=== PATIENT | female | born 1940 | race Caucasian/White ===

== ENCOUNTER 2017-07-19 07:21 | Outpatient (CLI) | payer MEDICARE ==
--- NOTE | 2017-07-19 13:39 | NM ---
MYOCARDIAL PERFUSION EVALUATION: INDICATIONS: History of chest pain, PVCs, and elevated cholesterol. RADIOPHARMACEUTICAL: The patient received 31.1 millicuries of technetium 99m sestamibi IV with stress and 10.5 millicuries of technetium 99m sestamibi IV with rest. FINDINGS: There is a mild-sized region of mildly reduced activity involving the apex and apical segment of the lateral wall of the left ventricle that is somewhat seen on both rest and stress images but more so o n the stress-related images, with and without auto soft tissue correction. There was normal wall mot ion and thickening present. The estimated LVEF is 86%. IMPRESSION: 1. Probably normal myocardial perfusion evaluation. 2. A predominantly fixed defect is seen involving the apex and apical segment of the lateral wall of the left ventricle, seen on both the rest and stress images but more accentuated on the stress-relat ed images. There was normal wall motion and thickening within this location. This is suspected to b e related to soft tissue attenuation. 3. Estimated left ventricular ejection fraction of 86%. POS: MARY
[2017-07-19] MEDS ORDERED: ADENOSINE 60 MG/20 ML VIAL ONE (15:43)
== END 2017-07-19 07:22 | disposition home or self-care (01) ==
LOC: NM 07:21
PROVIDERS: ATTEND Internal Medicine
DX: R07.9 Chest pain, unspecified (principal)
CPT/HCPCS: 78452; 93017; A9500; J0153

== ENCOUNTER 2019-04-03 03:14 | Emergency (ER) | payer MEDICARE ==
[2019-04-03] MEDS ORDERED: Lidocaine 2% MPF 10 ML AMP (For Epidural Use) ONE ×2 (04:53→05:06)
[2019-04-03] MEDS ORDERED: Lidocaine 2% PF 5 ML VIAL ONE ×2 (04:53→05:08)
--- NOTE | 2019-04-03 08:31 | RAD ---
THREE VIEWS RIGHT WRIST: COMPARISON: None. HISTORY: Fall down steps with right wrist pain. FINDINGS: Three views right wrist show a comminuted intraarticular impacted fracture of the distal radius. A s mall associated ulnar styloid fracture is seen. Surrounding soft tissue swelling and deformity are s een. IMPRESSION: Intraarticular distal radius fracture with associated ulnar styloid fracture. POS: C
--- NOTE | 2019-04-03 09:21 | RAD ---
LEFT ANKLE THREE VIEWS: HISTORY: Fall down stairs with ankle pain. COMPARISON: None. FINDINGS: Three views of the left ankle show no evidence of acute fracture or dislocation. Mild soft tissue swe lling is seen. No degenerative changes are present. IMPRESSION: No evidence of acute osseous abnormality. POS: C
== END 2019-04-03 08:00 | disposition home or self-care (01) ==
LOC: ERS 03:14
DX: S52.571A Other intraarticular fracture of lower end of right radius, initial encounter for closed fracture (principal); S52.611A Displaced fracture of right ulna styloid process, initial encounter for closed fracture; E03.9 Hypothyroidism, unspecified; E78.5 Hyperlipidemia, unspecified; M81.0 Age-related osteoporosis without current pathological fracture; Z79.899 Other long term (current) drug therapy; W01.0XXA Fall on same level from slipping, tripping and stumbling without subsequent striking against object, initial encounter
CPT/HCPCS: 29125; 96372; J2001

== ENCOUNTER 2019-04-07 13:14 | Day surgery (SDC) | payer MEDICARE ==
[~2019-04-07 13:14] MED LIST: Bupivacaine HCl 0.5%/Epinephrine 1:200,000/PF 30 ml Vial ONE; Lidocaine 1% PF 5 ML VIAL ONE; PROPOFOL 200 MG/20 ML VIAL ONE
[2019-04-07] MEDS ORDERED: Clindamycin/D5W 600 mg/50 ml Premix Bag ONE (13:23)
[2019-04-07] MEDS ORDERED: Ondansetron PF 4 MG/2 ML Vial ONE ×2 (13:50→16:02)
[2019-04-07] MEDS ORDERED: PROPOFOL 20 ML ONE (13:50)
[2019-04-07] MEDS ORDERED: Lidocaine 1% PF 5 ML VIAL ONE (13:50)
[2019-04-07] MEDS ORDERED: ePHEDrine/0.9% NaCl/PF SYRINGE 50 mg/10 ml ONE (13:50)
[2019-04-07] MEDS ORDERED: Dexamethasone 20 MG/5 ML VIAL ONE (13:50)
[2019-04-07] MEDS ORDERED: Fentanyl 100 MCG/2 ML VIAL ONE (14:36)
[2019-04-07] MEDS ORDERED: Promethazine HCl 25 MG/ML VIAL ONE (16:54)
--- NOTE | 2019-04-07 20:15 | RAD ---
TWO VIEWS RIGHT WRIST: 04/07/19 PROVIDED CLINICAL HISTORY: Postop. FINDINGS: Comparison 04/03/19. Frontal and lateral spot fluoroscopic views of the right wrist demonstrate interval volar plate and s crew fixation of previously described distal radial fracture with subsequent improved alignment. Ulna r styloid fracture is redemonstrated. IMPRESSION: As above. POS: YANNICK
--- NOTE | 2019-04-07 23:38 | OP ---
DATE OF PROCEDURE: 04/07/2019 PREOPERATIVE DIAGNOSIS: Right distal radius fracture, intra-articular (greater than 3 fragments). POSTOPERATIVE DIAGNOSIS: Right distal radius fracture, intra-articular (greater than 3 fragments). PROCEDURE PERFORMED: Open reduction and internal fixation of right distal radius. ANESTHESIA: Block and general. DIRECTOR OF VOCATIONAL GUIDANCE: Kimberly Ortiz PA-C IMPLANT: Synthes 2.4 mm variable angle LCP two-column plate. TOURNIQUET TIME: 37 minutes at 250 mmHg. COMPLICATIONS: None. DRAINS: None. SPECIMEN: None. OUTCOME: Satisfactory reduction. INDICATIONS FOR PROCEDURE: The patient is a pleasant 78-year-old lady, status post ground level fall after tripping down stairs, sustaining a right distal radius fracture. She was found to have dorsal comminution and a small intra-articular vertical extension up into the joint surface dorsally. After discussion with the patient including risks and benefits, we have decided to proceed with open reduction and internal fixation to stabilize the fracture and hopefully promote return of function in a quicker fashion. Informed consent has been obtained. I believe all questions have been answered. DESCRIPTION OF PROCEDURE: The patient was brought to the operating room and laid supine on the OR table with the right arm on an armboard and then a general anesthesia induced. Next, a sterile prep and drape was performed of the right upper extremity. The limb was exsanguinated with Esmarch bandage, tourniquet inflated to 250 mmHg. A volar radial skin incision was made. After skin was incised, dissection was carried down between the flexor carpi radialis and the brachioradialis, taking care to reflect the neurovascular bundle radially. Dissection was then carried down to the pronator quadratus, which was released off the radial border of the distal radius and reflected to the midline. Next, the fracture was reduced under direct visualization and held in place while a 2.4 mm variable angle LCP 2-column plate was applied to the volar cortex of the distal radius. This was held in place with a cortical screw proximal to the fracture. The plate was then adjusted under C-arm guidance and then a total of 4 locking screws were placed in the horizontal limb of the plate. This was followed by two additional cortical screws proximally. Final AP and lateral C-arm images were obtained that showed near-anatomic alignment of the fracture. The wound was then irrigated with bulb syringe and closed in layers with 2-0 Vicryl and nylon for the final skin closure. Xeroform gauze, Webril, and fiberglass splint was applied to the wrist and the patient was transferred to recovery room in stable condition. There were no complications. She tolerated the procedure well. Job ID: [id number]
== END 2019-04-07 18:35 | disposition home or self-care (01) ==
LOC: SDC 13:14
PROVIDERS: ATTEND Orthopaedic Surgery
PROC: 0PSH04Z Reposition Right Radius with Internal Fixation Device, Open Approach (ICD-10-PCS; principal; 2019-04-07)
DX: S52.571A Other intraarticular fracture of lower end of right radius, initial encounter for closed fracture (principal); E07.9 Disorder of thyroid, unspecified; E78.00 Pure hypercholesterolemia, unspecified; M81.0 Age-related osteoporosis without current pathological fracture; Z79.899 Other long term (current) drug therapy; Z88.0 Allergy status to penicillin
CPT/HCPCS: 76000; C1713; J1100; J2001; J2405; J2550; J2704; J3010; J3490